=== PATIENT | female | born 1985 | race Caucasian/White ===

== ENCOUNTER 2022-05-09 08:27 | Day surgery (SDC) | payer BC ==
[~2022-05-09 08:27] MED LIST: Lactated Ringers 1,000 ML IV ONE; Lactated Ringers 1,000 ML IV SCH
[2022-05-09] MEDS ORDERED: CLINDAMYCIN-D5W 900 MG/50 ML*** 900 MG/50 ML BAG IV SCH (09:00)
[2022-05-09] MEDS ORDERED: SUBLIMAZE 100 MCG/2 ML ONE ×2 (10:25→11:33)
[2022-05-09] MEDS ORDERED: Versed 2 MG/2 ML Injection ONE (10:25)
[2022-05-09] MEDS ORDERED: DIPRIVAN 200 MG/20 ML IV ONE (10:25)
[2022-05-09] MEDS ORDERED: Xylocaine-Mpf 2% 5 Ml Vial ONE (10:26)
[2022-05-09] MEDS ORDERED: Decadron 4 MG INJ ONE (11:37)
[2022-05-09] MEDS ORDERED: TORAdol 30 mg Injection ONE (11:37)
[2022-05-09] MEDS ORDERED: Zofran 4 MG/2 ML VIAL ONE (11:37)
[2022-05-09 12:52] VITALS: BP 122/66; O2SAT 100
[2022-05-09 13:13] VITALS: PULSE 56
--- NOTE | 2022-05-10 10:31 | OP ---
SURGERY DATE: 05/09/2022 SURGERY TIME: 1126 PREOPERATIVE DIAGNOSIS: 1. MISSED APPROXIMATELY 7 WEEKS GESTATION. POSTOPERATIVE DIAGNOSIS: 1. MISSED APPROXIMATELY 7 WEEKS GESTATION. PROCEDURE: 1. Suction D&C. SURGEON: Dr. Frederick Perez. LIFE ADVISOR: Corrie. ANESTHESIA: General. ESTIMATED BLOOD LOSS: Minimal. COMPLICATIONS: None. FINDINGS: The risks, benefits, indications, and alternatives of the procedure were reviewed with the patient prior to the procedure. Patient understood the risk of infection, bleeding, bowel injury, bladder injury, ureteral injury, uterine perforation, pelvic infection, and thromboembolic disorder associated with this surgery and desired to have the surgery as a possible need to alleviate her current medical condition. DESCRIPTION OF PROCEDURE: At this point, the patient was taken to the OR, given general sedation, placed in the dorsal lithotomy position, prepped and draped in the usual sterile fashion. The weighted speculum was then placed in the patient's vagina and the anterior lip of the cervix was grasped with the single toothed tenaculum. Endocervical dilators were advanced through the endocervical canal as a means to dilate the cervix and a #7 suction vac curette was then placed into the fundus of the uterus where the machine was turned on for suctioning at this point. All materials were removed with the products of conception and was done so without complication. After completion suctioning, a curette was then placed into the fundus of the uterus and curettage was performed retrieving a mild amount of remaining tissue. From this point, all instruments were then removed from the patient's vaginal region. The patient was then taken out of the dorsal lithotomy position and was taken to the recovery room in stable condition. All instruments and laps were accounted for X 2.
== END 2022-05-09 13:16 | disposition home or self-care (01) ==
LOC: SDC 08:27
PROVIDERS: ATTEND Obstetrics & Gynecology
DX: O02.1 Missed abortion (principal)
CPT/HCPCS: 36415; 86901; J1100; J1885; J2250; J2405; J2704; J3010